=== PATIENT | female | born 1980 | race Caucasian/White ===

== ENCOUNTER → 2022-05-19 11:13 | Outpatient (CLI) | payer OTHER, SELFPAY ==
--- NOTE | ~2022-05-19 | XR_ITS ---
EXAMINATION: XR chest 2V Exam Date/Time: 05/19/2022 11:15 CDT HISTORY: R06.02 - Shortness of breath, cough Comparison: None available. RESULT: Lines, tubes, and devices: None. Lungs and pleura: Clear. Cardiomediastinal silhouette: Normal. Other: No acute osseous or upper abdominal finding. IMPRESSION: No acute cardiopulmonary process. Reviewed, dictated and finalized at location K.
== END ==
PROVIDERS: PCP Physician Assistant; Visit Provider Physician Assistant
DX: R06.02 Shortness of breath (principal)
CPT/HCPCS: 71046

== ENCOUNTER → 2023-01-27 15:24 | Outpatient (CLI) | payer OTHER, SELFPAY ==
--- NOTE | ~2023-01-27 | MM_ITS ---
EXAMINATION: MM screening selin BI w sherrell HISTORY: Screening mammogram TECHNIQUE: Craniocaudal and mediolateral oblique 3-D tomosynthesis images were obtained and synthetic 2-D images were generated. CAD analysis was submitted and interpreted. COMPARISON: None, baseline BREAST PARENCHYMAL COMPOSITION: There are scattered areas of fibroglandular density. FINDINGS: No suspicious mass, calcification, or architectural distortion are identified in either helene ast to suggest malignancy. IMPRESSION: 1. No mammographic evidence of malignancy. 2. Recommend routine screening mammography in one year. BI-RADS Category 1: Negative Reviewed, dictated and finalized at location A.
== END ==
PROVIDERS: PCP Physician Assistant; Visit Provider Physician Assistant
DX: Z12.31 Encounter for screening mammogram for malignant neoplasm of breast (principal)
CPT/HCPCS: 77063; 77067

== ENCOUNTER 2023-12-21 15:35 | Outpatient (CLI) | payer BC, SELFPAY ==
[2023-12-21 19:11] LABS: Appearance Urine Clear (Clear); Bilirubin Urine Negative (Negative); Blood Urine Negative (Negative); Color Urine Yellow (Yellow); Glucose Urine UA Negative (Negative); Ketones Urine Negative (Negative); Leukocyte Esterase Ur Negative LEU/UL (Negative); Nitrate Urine Negative (Negative); Protein Urine Negative (Negative); Specific Grav Ur 1.011 (1.001-1.035); Urobilinogen Urine 0.2 mg/dL (<2.0); pH Urine 5.5 (5.0-9.0)
[2023-12-21 19:28] LABS: Add Urine Microscopic? NO
== END 2023-12-21 15:36 | disposition home or self-care (01) ==
LOC: ANHGOSHLAB 15:36
PROVIDERS: PCP Emergency Medicine; Visit Provider Emergency Medicine
DX: R30.0 Dysuria (principal)
CPT/HCPCS: 81003

== ENCOUNTER 2025-01-26 12:28 | Outpatient (CLI) | payer BC, SELFPAY ==
--- NOTE | ~2025-01-26 | MM_ITS ---
EXAMINATION: MM screening selin BI w sherrell HISTORY: Screening TECHNIQUE: Craniocaudal and mediolateral oblique 3-D tomosynthesis images were obtained and synthetic 2-D images were generated. CAD analysis was submitted and interpreted. COMPARISON: 01/27/2023 BREAST PARENCHYMAL COMPOSITION: Not dense: There are scattered areas of fibroglandular density. FINDINGS: There is no evidence of suspicious mass, calcification, or architectural distortion to sugg est malignancy in either breast. There has been no suspicious interval change. IMPRESSION: 1. No mammographic evidence of malignancy. 2. Recommend routine screening mammography in one year. BI-RADS Category 1: Negative Reviewed, dictated and finalized at location B.
== END 2025-01-26 12:29 | disposition home or self-care (01) ==
LOC: MICIMG 01-27 12:29
PROVIDERS: PCP Nurse Practitioner Family; Visit Provider Nurse Practitioner Family
DX: Z12.31 Encounter for screening mammogram for malignant neoplasm of breast (principal)
CPT/HCPCS: 77063; 77067

== ENCOUNTER 2025-09-04 00:44 | Day surgery (SDC) | payer BC, SELFPAY ==
[2025-07-05 09:01] VITALS: BMI 25.1
--- OUTSIDE RECORDS SUMMARY | 2025-09-04 00:47 | XMS_ITS | Clinical Summary ---
Author Organization [address] Address [address] [place] [id number] Care Team Providers Care V Block Saw Operator Name Role Phone Javier Burleson MD Primary Care Provider [phone] Allergies No known active allergies Medications buPROPion XL (WELLBUTRIN XL) 150 mg 24 hr tablet Take 1 tablet (150 mg total) by mouth every morning 2 Active buPROPion XL (WELLBUTRIN XL) 300 mg 24 hr tablet Take 1 tablet (300 mg total) by mouth daily 2 Active sertraline (ZOLOFT) 100 mg tablet Take 100 mg by mouth daily 2 Active traZODone (DESYREL) 100 mg tablet 2 Active ALPRAZolam (XANAX) 0.5 mg tablet Take 1 tablet (0.5 mg total) by mouth daily as needed 2 Active benzonatate (TESSALON) 200 mg capsuleIndication s:Lower respiratory infection (e.g., bronchitis, pneumonia, pneumonitis, pulmonitis) Take 1 capsule (200 mg total) by mouth 3 (three) times a day as needed for cough 30 capsule 2 Active Additional Information Patient not taking.Reported on 07/22/2022 azithromycin (ZITHROMAX) 250 mg tabletIndications :Lower respiratory infection (e.g., bronchitis, pneumonia, pneumonitis, pulmonitis) Take 2 tablets the first day, then 1 tablet daily for 4 days. 6 tablet 2 Active Additional Information Patient not taking.Reported on 07/22/2022 methylPREDNISolon e (Medrol, Clark,) 4 mg DosepackIndicatio ns:Lower respiratory infection (e.g., bronchitis, pneumonia, pneumonitis, pulmonitis) follow package directions 1 packet 2 Active Additional Information Patient not taking.Reported on 07/22/2022 diazePAM (VALIUM) 5 mg tabletIndications :ASNHL (asymmetrical sensorineural hearing loss) Take 1 tablet (5 mg total) by mouth every 30 (thirty) minutes as needed for anxiety for up to 2 doses 2 tablet 2 Active Additional Information Patient not taking.Reported on 09/16/2022 clindamycin (CLINDAGEL) 1 % gel 3 Active sulfamethoxazole- trimethoprim (BACTRIM DS) 800-160 mg per tablet Take 1 tablet by mouth 2 (two) times a day 14 tablet 3 Active Additional Information Patient not taking.Reported on 10/01/2022 vilazodone (VIIBRYD) 40 mg tablet Take 1 tablet (40 mg total) by mouth daily 4 Active Wegovy 0.25 mg/0.5 mL auto-injector INJECT 0.25 MG UNDER THE SKIN ONCE WEEKLY 4 Active topiramate (TOPAMAX) 50 mg tabletIndications :Chronic migraine without aura without status migrainosus, not intractable Take half tablet (25 mg) po twice a day for one week, then one tablet po twice a day 60 tablet 3 4 Active Active Problems Problem Noted Date Diagnosed Date 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 Chronic migraine without aur a without status migrainosus, not intractable 03/30/2024 Numbness and tingling of upper extremity 024 ASNHL (asymmetrical sensorineural hearing loss) 07/22/2022 Assessment & Plan (07/22/2022 9:12 AM INSTRUCTIONAL COORDINATOR): MRI Internal auditory canals, when negative will medically clear for hearing aids Valium if needed for imaging Acne 01/27/2014 Overview (12/16/2016): Acne Anxiety state 01/27/2014 Overview (12/18/2016): ANXIETY STATE NOS Immunizations Immunization Administration Dates Next Due Influenza, Split 06/02/2011 Surgical History Surgery Date Site/Laterality Comments OTHER SURGICAL HISTORY 1985 eye surgeries Family History Medical History Relation Name Comments Hepatitis Father Hepatitis C; Hyperlipidemia Father Hyperlipidemi a; Hypertension Father Hypertension; Other Father liver problems; Other Mother 2 Alive and well; Other Sister 2 Alive and well; Relation Name Status Comments Father Mother 1 Alive Mother 2 Sister 1 Alive Sister 2 Social History Tobacco Use Types Packs/Day Years Used Date Smoking Tobacco: Never Alcohol Use Standard Drinks/Week Comments Yes 0 (1 standard drink = 0.6 oz pur e alcohol) AUDIT-C Answer Date Recorded Frequency of Alcohol Consumption Not on file 09/16/2022 Q2: How many drinks containi ng alcohol do you have on a typical day when you are drinking? Patient does not drink Frequency of Binge Drinking Not on file 12/2022 Comments Unknown Sex and Gender Information Value Date Recorded Sex Assigned at Not on file Legal Sex Female 10:15 PM INSTRUCTIONAL COORDINATOR Gender Identity Not on file Sexual Orientation Not on file Last Filed Vital Signs Vital Sign Reading Time Taken Comments Blood Pressure 112/79 03/30/2024 9:39 AM CDT Pulse 79 03/30/2024 9:39 AM CDT Temperature 36.3 C (97.3 F) 09/16/2022 10:35 AM INSTRUCTIONAL COORDINATOR Respiratory Rate 12 09/16/2022 10:35 AM INSTRUCTIONAL COORDINATOR Oxygen Saturation 97% 03/30/2024 9:39 AM CDT Inhaled Oxygen Concentration - - Weight 88.5 kg (195 lb) 05/03/2024 10:29 AM CDT Height 167.6 cm (5' 5.98) 03/30/2024 9:39 AM CD T Body Mass Index 31.49 03/30/2024 9:39 AM CDT Plan of Treatment Health Maintenance Due Date Last Done Comments Breast Cancer Screening-Mammogram 1980 Cervical Cancer Screening 1980 Colon Cancer Screening-Colonoscopy 1980 Depression Screening 1980 Hepatitis C Screening 1980 DTaP/Tdap/Td Vaccine (1 - Tdap) 1991 Varicella Vaccines (1 of 2 - 13+ 2-dose series) 1993 Hepatitis B Screening 1998 Regular Well Visit/Exam 18-64 1998 HPV Vaccines (1 - 3-dose SCD M series) 2007 Covid-19 Vaccine (2024-2 6 season) 2025 08/21/2021, 01/27/2021, 10/23/2020 Influenza Vaccine (#1) 2025 06/02/2011 Pneumococcal vaccine <65 Aged Out No longer eligible based on patient's age to complete this topic Insurance [employer] ACCESS CHOICE [employer] ACCESS CHOICE [employer] ACCESS CHOICE Member Subscriber Plan / Payer (Ef fective 2023-Present) Name:Jo Ann Marin Relation to Subscriber:Self Name:Jo Ann Marin Payer ID:[id number] (NAIC) Type:[facility] Address: [facility] [id number] [id number] Care Teams V Block Saw Operator Relationship Specialty Start Date End Date Javier Burleson MD [address] [place] [address] PCP - General Family Medicine 03/27/24
--- OUTSIDE RECORDS SUMMARY | 2025-09-04 00:47 | XMS_ITS | Data Portability ---
Author Organization [facility] [place] Address [address] [place] [address] [address] [place] [address] Care Team Providers Care Safety Companion Name Role Phone MICHAEL MELCHOR Primary Care Provider Assessment Encounter Date Assessment Date Assessment LastModified by Organization Details LastModified Time 04/15/2023 04/15/2023 Annual gynecological exam performed. Patient will come back in a year unless there are new symptoms. [email or web address] Not available 04/15/2023 15:14:52 04/17/2025 04/17/2025 Annual gynecological exam performed. Patient will come back in a year unless there are new symptoms. [email or web address] Not available 04/17/2025 09:08:24 Plan of Treatment Reminders Order Date Submit Date Provider Last Modified By Organization Details Last Modified Time Details Appointments None recorded. Lab test, urine 2024 025 [email or web address] [place], [address], [place], [address], 15:59:55 Referral None recorded. Procedures colonoscop y screening (PROC) [facility], [address], [address], [place], [address], 5 16:19:12 Surgeries None recorded. Imaging MAMMO, screening, digital, bilateral 2024 025 [facility], [address], [address], [place], [address], 5 10:07:24 Medication Orders Mirena 21 mcg/24 hr (up to 8 years) 52 mg intrauteri ne device 2024 025 [email or web address] [id number], [address] , [place], [place], [id number], 5 15:59:55 Patient TargetsNo targets recorded. Patient InstructionsNo instructions recorded. Reason for Referral None Reported. Results Created Date Observation Date Name Description Value Unit Range Abnormal Flag Note LastModifiedBy Organization Detail LastModifiedTime 04/15/2004/15/2023 IMAGE GUIDE D PAP AND HPV REGAR DLESS image guided Pap, HPV regardless of Pap result SEE RESULT S BELOW CASE REPOR T: Cytol ogy Gynec ologi ivan Repor t Case: [id number] Autho eli g Provi billy: Maren Lopez, CLARA Colle cted: 04/15 1533 Order ing Locat ion: [place] [facility] Recei karie: 04/16 0150 First Screyousuf n: Stefanie Callaway , SANDI Rescr een: Nallely Mcfarland , CT Speci men: Clarissayousuf coxg Pap - Image d, Cervi x STATE MENT OF ADEQU ACY: Satis facto ry for evalu ation Trans forma tion zone compo nent absen t The absen ce of an endoc ervic al compo nent was confi rmed by an addit ionjanie major ner. FINAL DIAGN OSIS: Negat keeley for Intra epith elial Lesio n or Pepito hughes (NIL) . Elect roshan agosto kelli d by Nallely Mcfarland , SANDI on 023 at 9:08 AM ----- ----- ----- ----- ----- ----- ----- ----- ----- ----- ----- ----- ----- ----- ----- ----- ----- ---- HPV RESUL TS: HPV mRNA E6/E7 : No HPV mRNA Detec richardson NOTE: This high risk HPV mRNA assay detec ts fourt een high- risk HPV types (16, 18, 31, 33, 35, 39, 45, 51, 52, 56, 58, 59, 66, 68) witho ut diffe renti ation . COMME NT: This speci men was revie wed by a Cytot echno logis t and/o r Patho logis t (as indic ated in this repor t) after evalu ation using the Thinp rep Imagi ng Syste m. CLINI IVAN INFOR MATIO N: Menst rual Statu s: LMP (if appli cable ): Clini ivan Histo ry/Pr eviou s Pap: Type of Neopl henna (if appli cable ): Signi fican t Clini ivan Findi ngs: Other Histo ry: Hormo nancy (if appli cable ): PAP EDUCA BLANCA L NOTE: The Pap Test is a scree maryann test with an inher ent false negat keeley rate. Liqui d-bas ed sampl ing may decre ase, but will not elimi drew, false negat keeley resul ts. A negat keeley resul t does not precl ude the prese nce and/o r devel opmen t of disea se, since the prese nce of abnor mal cells in the sampl e depen ds on the locat ion of the lesio n and sampl ing techn ique. Jess nued regul ar scree maryann is the best metho d of cance r preve ntion . If repor richardson cytol ogic findi ng do not corre late with physi ivan and/o r histo rical findi ngs, furth er inves tigat ion is recom emiliano d, as clini tee edward nted. Not Available [facility] (Lab) [address], [place], [address], 04/19/2023 10:12:22 04/24/20 25 04/24/2025 pregn tash test, urine HCG negati ve Not Available [place] [address], [place], [address], 04/24/2025 15:58:10 Result Notes None recorded. Problems Name Problem SNOMED Code Status Onset Date Resolution Date Notes Provider Name and Address Organization Details Recorded Time Education Active 2014 Family planning;R ecorded Elsewhere: No Locatio n: [facility] rce: EHR Chroni c: N Practice ID: [id number] Billa ble Time: 12:30:00 PM Not Available [facility] 0 16:04:42 Condyloma acuminatu m of the anogenita l region [id number] Active 2014 Condyloma acuminatum ;Recorded Elsewhere: No Locatio n: [facility] rce: EHR Chroni c: N Practice ID: 0001 Billa ble Time: 11:30:00 AM Not Available [facility] 0 16:04:41 Body mass index 25-29 - overweigh t [id number] Active 2015 Body mass index (BMI) 29.0-29.9, adult;Sage rded Elsewhere: No Locatio n: [facility] rce: EHR Chroni c: N Practice ID: 0001 Billa ble Time: 03:45:00 PM Not Available [facility] 0 16:04:[address] Concept Active 2015 Encntr for general adult medical exam w/o abnormal findings;R ecorded Elsewhere: No Locatio n: [facility] rce: EHR Chroni c: N Practice ID: 0001 Billa ble Time: 03:45:00 PM Not Available [facility] 0 16:04:42 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 Procedures Surgical History Date Name Laterality Status Provider Name and Address Organization Details Recorded Time 5 IUD Insertion completed FLORI ZAMORA, CLARA [address], [place], [address], [facility] 04/24/2025 15:58:07 3 Date of Last Pap Smear completed Holley Auguste [facility] 04/17/2025 08:55:52 4 procedure on eye completed Brooke Reinoso [facility] 04/01/2020 16:50:53 Imaging Results None recorded. Procedure Notes None recorded. Medical Equipment None Reported. Allergies No known drug allergies Medications Name Sig Start Date Stop Date Status Note LastModified by Organization Details LastModified Time Mirena 21 mcg/24 hr (up to 8 years) 52 mg intrauter ine device Take 1 device by intraute rine route. 2024 active Not Available Not Available Not Avai lable azithromy prosper 250 mg tablet TAKE 2 TABLETS BY MOUTH FOR 1 DAY THEN TAKE 1 TABLET BY MOUTH DAILY FOR 4 DAYS 04/15 completed Not Available Not Available Not Available fluconazo le 150 mg tablet 04/15 completed Not Available Not Available Not Available benzonata te 200 mg capsule 04/15 completed Not Available Not Available Not Available sertralin e 100 mg tablet TAKE 1 TABLET BY MOUTH DAILY 04/15 completed Not Available Not Available Not Available sulfameth oxazole 800 mg-trimet hoprim 160 mg tablet TAKE 1 TABLET BY MOUTH EVERY 12 HOURS 04/15 completed Not Available Not Available Not Available acyclovir 800 mg tablet TAKE 1 TABLET BY MOUTH THREE TIMES DAILY 04/17 completed Not Available Not Available Not Available alprazola m 0.5 mg tablet TAKE 1 TABLET BY MOUTH DAILY 04/17 completed Not Available Not Available Not Available clindamyc in 1 % topical gel APPLY THIN LAYER TOPICALL Y TO THE AFFECTED AREA TWICE DAILY 04/15 completed Not Available Not Available Not Available trazodone 100 mg tablet TAKE 1 TABLET BY MOUTH EVERY DAY AT BEDTIME active Not Available Not Available No t Available Xanax 0.25 mg tablet take 1 tablet by oral route 3 times every day 04/17 completed Prescrib ed Elsewher e: Yes Loca tion: Ede to [facility] odify By: luma z Encoun ter DateTime : 08/24/20 17 10:15:00 AM Not Available Not Available Not Available nitrofura ntoin macrocrys anup 100 mg capsule TAKE 1 CAPSULE BY MOUTH EVERY 12 HOURS 04/17 completed Not Available Not Available Not Available prednison e 50 mg tablet TAKE 1 TABLET BY MOUTH DAILY 04/17 completed Not Available Not Available Not Available Wellbutri n 75 mg tablet take 1 tablet by oral route 3 times every day 04/15 completed Prescrib ed Elsewher e: Yes Loca tion: Adi yousuf [facility] odify By: julia dawson DateTime : 03/28/20 15 12:30:00 PM Not Available Not Available Not Available Condylox 0.5 % topical gel apply by topical route 2 times every day for 3 consecut keeley days, then disconti nue for 4 consecut keeley days. Repeat for max of four times. 08/24 completed Prescrib ed Elsewher e: No Locat ion: Ede to [facility] odify By: luma z Encoun ter DateTime : 03/28/20 15 12:30:00 PM Not Available Not Available Not Available methylpre dnisolone 4 mg tablets in a dose pack FOLLOW PACKAGE DIRECTIO NS 04/15 completed Not Available Not Available Not Available albuterol sulfate HFA 90 mcg/actua tion aerosol inhaler INHALE 1 PUFF EVERY 4 HOURS 04/17 completed Not Available Not Available Not Available Vitamin D2 1,250 mcg (50,000 unit) capsule take 1 capsule by oral route every week 2017 active Prescrib ed Elsewher e: No Locat [facility]: [facility] By: lenin melendez DateTime : 09/14/19 18 08:12:38 AM Not Available Not Available Not Available propranol ol 20 mg tablet TAKE 2-3 TABLET BY MOUTH 1 HOUR PRIOR TO EVENT NEEDED ANXIETY 04/17 completed Not Available Not Available Not Available Zoloft 25 mg tablet take 1 tablet by oral route every day 04/15 completed [facility] Yes Loca tion: [facility] odify By: DFine z Encoun ter DateTime : 08/24/20 17 10:15:00 AM Not Available Not Available Not Available diazepam 5 mg tablet TAKE 1 TABLET BY MOUTH EVERY 30 MINUTES NEEDED FOR ANXIETY FOR UP TO 2 DOSES 04/15 completed Not Available Not Available Not Available Microgest in (21) 1.5 mg-30 mcg tablet take 1 tablet by oral route every day 08/24 completed [facility]crib [facility]: Yes Loca tion: [facility] odify By: DFine z Encoun ter DateTime : 03/28/20 15 12:30:00 PM Not Available Not Available Not Available aripipraz ole 5 mg tablet TAKE 1 TABLET BY MOUTH EVERY DAY AT BEDTIME 04/17 completed Not Available Not Available Not Available bupropion HCl XL 300 mg 24 hr tablet, extended release TAKE 1 TABLET BY MOUTH EVERY MORNING active Not Available Not Available No t Available bupropion HCl XL 150 mg 24 hr tablet, extended release TAKE 1 TABLET BY MOUTH EVERY MORNING active Not Available Not Available No t Available topiramat e 50 mg tablet 04/17 completed Not Available Not Available Not Available nitrofura ntoin monohydra te/macroc rystals 100 mg capsule TAKE 1 CAPSULE BY MOUTH EVERY 12 HOURS FOR 10 DAYS 04/17 completed Not Available Not Available Not Available Zoloft 04/15 completed Not Available Not Available Not Available Xanax 04/15 completed Not Available Not Available Not Available Wellbutri n XL 04/15 completed Not Available Not Available Not Available vilazodon e 40 mg tablet TAKE 1 TABLET BY MOUTH DAILY active Not Available Not Available No t Available vilazodon e 20 mg tablet 04/15 completed Not Available Not Available Not Available Vitamin D2 04/15 completed Not Available Not Available Not Available Blisovi Fe 10/02 (28) 1 mg-20 mcg (21)/75 mg (7) tablet TAKE 1 TABLET BY MOUTH DAILY 04/15 completed Not Available Not Available Not Available Wegovy 1.7 mg/0.75 mL subcutane ous pen injector INJECT 1.7 MG (0.75 ML) SUBCUTAN EOUSLY WEEKLY active Not Available Not Available No t Available Wegovy 1 mg/0.5 mL subcutane ous pen injector ADMINIST ER 1 MG UNDER THE SKIN EVERY 7 DAYS 04/17 completed Not Available Not Available Not Available Wegovy 0.25 mg/0.5 mL subcutane ous pen injector INJECT 0.25 MG UNDER THE SKIN ONCE WEEKLY 04/17 completed Not Available Not Available Not Available Wegovy 0.5 mg/0.5 mL subcutane ous pen injector ADMINIST ER 0.5 MG UNDER THE SKIN WEEKLY 04/17 completed Not Available Not Available Not Available Vitals Date Recorded Body height Body mass index (BMI) Body weight Systolic And Diastolic Provider Name and Address Organization Details Last Updated DateTime 04/15/2023 167.64 cm 36 kg/m2 875519.1 g 104/72 mm[Hg] Lelo Munoz [facility] 04/15/2023 15:15:57 Date Recorded Body height Body mass index (BMI) Body weight Systolic And Diastolic Provider Name and Address Organization Details Last Updated DateTime 04/17/2025 167.64 cm 26.5 kg/m2 47674.15 g 110/69 mm[Hg] [facility] 04/17/2025 09:08:37 Date Recorded Body height Body mass index (BMI) Body weight Systolic And Diastolic Provider Name and Address Organization Details Last Updated DateTime 04/24/2025 167.64 cm 26.6 kg/m2 54346.02 g 128/84 mm[Hg] [facility] 04/24/2025 15:19:19 Social History Question Answer Notes LastModified by Organizat ion Details LastModified Time Tobacco Smoking Status Never Smoker Lelo Munoz [facility] 04/15/2023 15:16:11 Do You Have An Advance Directive? No [email or web address] Information n ot available 04/17/2025 Are You Blind Or Do You Have Difficulty Seeing? No Information n ot available 04/15/2023 What Is Your Level Of Caffeine Consumption? Moderate Information not available 04/15/2023 How Much Tobacco Do You Chew? None Information not available 04/15/2023 In The 14 Days Before Symptom Onset, Have You Had Close Contact With A Laboratory-confirm ed COVID-19 While That Case Was Ill? No Information n ot available 04/15/2023 In The 14 Days Before Symptom Onset, Have You Had Close Contact With A Person Who Is Under Investigation For COVID-19 While That Person Was Ill? No Information not available 04/15/2023 Have You Been To An Area Known To Be High Risk For COVID-19? No Information not available 04/15/2023 Are You Deaf Or Do You Have Serious Difficulty Hearing? Yes Information not available 04/15/2023 What Type Of Diet Are You Following? REGULAR Information n ot available 04/15/2023 What Is The Highest Grade Or Level Of School You Have Completed Or The Highest Degree You Have Received? [id number] Information not available 04/15/2023 Are There Any Guns Present In Your Home? No Information not available 04/15/2023 Do You Use Protection During Sex? Always [email or web address] Information not available 04/17/2025 Do You Use Your Seat Belt Or Car Seat Routinely? Yes Information not available 04/15/2023 Do You Have Smoke And Carbon Monoxide Detectors In Your Home? Yes Information not available 04/15/2023 How Much Tobacco Do You Smoke? No Information not available 04/15/2023 Do You Use Sunscreen Routinely? Yes Information not available 04/15/2023 Have You Used IV Drugs? No Information not available 04/15/2023 Do You Have Difficulty Walking Or Climbing Stairs? No Information not available 04/15/2023 Sex: Unknown Functional Status Question Answer Note LastModified by Organizat ion Details LastModified Time Do you use any illicit or recreational drugs? No Information not available 04/15/2023 What is your level of alcohol consumption? None Information not available 04/15/2023 Are you able to walk independently without assistance or assistive devices? YESWOREST Information not available 04/15/2023 Are you able to care for yourself independently? 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 No Information not available 04/15/2023 What is your exercise level? Moderate [email or web address] Information not available 04/17/2025 Mental Status Question Answer Note LastModified by Organization D etails LastModified Time Do you feel stressed (tense, restless, nervous, or anxious, or unable to sleep at night)? [id number] Information not available 04/15/2023 Family History Relationship Description Onset Age of this Age Resolved Age Notes LastModified by Organization Details LastModified Time Maternal Grandmother Carcinoma of uterine cervix, invasive [email or web address] Not available 2019 16:50:38 Notes:Maternal grandmother: Cancer, cervical Medical History Condition Response Allergies (Food, seasonal, environmental ) N Other N Drug/Latex Allergies/Reactions N Blood Transfusion N Breast Cancer N Dermatologic Disorders N Lung Disease N Defects or Inherited Disease N Breast Problem N Gestational Diabetes N Hematologic disorders N Anesthesia Complications N History of STI N Deep Vein Thrombosis N Polycystic ovary syndrome N Anxiety Disorder N Autoimmune disease N Arthritis N Polyps N Infertility N Acid Reflux (GERD) N History of abnormal pap N Cancer N Varicosities N Stroke N Neurologic/Epilepsy N Endometriosis N High Cholesterol N Fibromyalgia N Headaches N Kidney Disease N Heart Problems N Thyroid Problems N Kidney or Bladder Problems N GI Problems N Eating Disorder N Anemia N Art (IVF or FET) N Psychiatric Illness N Ovarian Cancer N Diabetes N Pulmonary (TB, Asthma) N Hepatitis/Liver Disease N No Past Medical History N Eczema N Urinary Tract Infection N Abuse/Domestic Violence N Asthma N Trauma/Violence N Depression/ depression N Heart Disease N Pre-Eclampsia N Hypertension N Osteoporosis N Thrombophilias N Gynecological History Statement/Question Response Flow Moderate Date of LMP 04/19/2025 N Was last menstrual period normal Y STIs/STDs N HPV Vaccine N Current Control Method IUD Are cycles usually normal Y Sexually Active? N Menses Monthly Y Age of first menstrual cycle 12 Date of Last Pap Smear 04/15/2023 Sexual Problems? N Desired Control Method IUD LMP Definite N Obstetrics History GPAL:G 0 P 0 0 0 0 Past Encounters Encounter ID Performer Location Encounter Start Date Encounter Closed Date Diagnosis/Indication Diagnosis SNOMED-CT Code Diagnosis ICD10 Code Diagnosis IMO Codes Diagnosis Note [id number] EVON Talley [place] [address] [address] 04/15/2023 14:59:05 04/15/2023 16:02:34 Gynecologic examination 57892367 Z01.419 Suggested Calcium with Vitamin D 1200-1500m g daily. Patient advised to get an annual flu shot in the fall and she could obtain at [facility] or [facility] care clinic. Also to obtain TDap vaccinatio n if you have not had one in the last 10 years. Recommend yearly mammograms . Encouraged monthly self breast exams. Encourage safe sexual practices, to use condoms and limit partners if not already in a monogamous relationsh ip. Engage in daily exercise of low impact aerobic exercise 45-60 minutes 4-5 times weekly. Avoid tobacco and illicit drugs as well as using moderation with alcohol intake less than 1-2 8 oz beverages daily. This lifestyle behavior pattern will lead to less health conditions and longer life span. If BMI greater than 25 weight watchers or dietary consult advised. All questions have been answered. Patient appears to understand informatio n, but if you have any questions please call or respond to this email. 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 Risks of infection would be increased within the first 21 days of placement with concommita nt cervicitis . She understand s that the device will need to be removed in this instance due to increased risk of Pelvic inflammato ry disease. Patient is aware she is at higher risk for STD and if contracted she could lose her fertility. Pt is aware that if occurs that she should contact office immediatel y to rule out ectopic which could be life threatenin g. IUD will also need to be removed and this could cause miscarriag e. Patient also informed that in the event her strings are absent or embedded at the time of removal she may need to have the IUD surgically removed.RT C during next period for insertion [id number] FLORI ZAMORA, CLARA [place] [address] [address] 04/17/2025 09:00:43 04/17/2025 09:54:27 Well woman health examination [id number] Z01.419 [id number] Annual gynecologi ivan exam performed. Patient will come back in a year unless there are new symptoms. Suggest Calcium with Vitamin D if not eating in diet. Patient advised to get annual flu shot. Recommend yearly physicals and perform monthly breast exams. Genetic testing is available for patients with family history of cancer. Engage in safe sexual practices, use condoms. Encouraged to have daily exercise. Avoid tobacco and illicit drugs, moderation of alcohol. If BMI greater than 25 dietary consult advised. If you have any questions please call or email. mammogram- order given, pt to schedule colon cancer screening - due at age 45; referral to [facility] for screening colonoscop y DEXA scan- n/a Pap smear- UTD (2022 - WN), will repeat in 2025 per ASCCP guidelines laboratory evaluation - PCP STI testing - declined Screening mammography 24 384606 Z12.31 [id number] Menorrhagia 206156105 N9 2.0 [id number] Today we discussed multiple options for menorrhagi a including: hormonal IUD, Patch, Ring, Pills, Nexplanon, Lysteda; Endometria l ablation (requires MD consult). We discussed if any are contraindi cated with her current health Hx. Patient interested in Mirena IUD.Discus sed the risks, benefits, and alternativ es to Mirena IUD. Discussed insertion and removal process. Discussed bleeding profile. Questions answered. Will schedule insertion with menses. Screening for malignant neoplasm of colon 014910031 Z12.11 [id number] FLORI ZAMORA, CLARA [place] [address] [address] 04/24/2025 15:10:24 04/24/2025 16:01:01 Insertion of hormone releasing intrauterine contraceptive device [id number] Z30.430 [id number] She has been counseled on all of the r/b/a of placement of an intrauteri ne device that include but are not limited to uterine perforatio n, injury to cervix, vagina, bladder, and bowel.Risk s of bleeding due to injury or increased irregular bleeding due to progestin effect of the device. Risks of infection would be increased within the first 21 days of placement with concomitan t cervicitis . She understand s that the device will need to be removed in this instance due to increased risk of Pelvic inflammato ry disease. Patient is aware she is at higher risk for STD and if contracted she could lose her fertility. Pt is aware that if occurs that she should contact office immediatel y to rule out ectopic which could be life threatenin g. IUD will also need to be removed and this could cause miscarriag e. Patient also informed that in the event her strings are absent or embedded at the time of removal she may need to have the IUD surgically removed. She was informed of the above and properly consented. Mirena IUD placed w/o complicati on. Patient should return to office in 4-6 weeks to check for string placement. Patient to expect irregular bleeding but should be seen in the ED if bleeding increases to soaking a pad an hour for at least 2 hours. She verbalized understand ing. Health Concerns Section Related Observation LastModified by Organization Detai ls LastModified Time None Recorded Concern Status LastModified by Organization Details LastModified Time None Recorded Advance Directives Directive N: Payers Insurance Date Sequence Insurance Name Policy Number Policy Coley Covered Member ID Coley Member ID Guarantor Name 04/22/2025 1 KEIKO BALBUENA (PPO) [id number] Jo Ann Marin [id number] Jo Ann Marin 03/30/2023 1 *SELF PAY* Valdemar Marin 08/04/2024 1 [facility] [id number] Jo Ann Marin [id number] Jo Ann Marin Notes Date Note Type Note Provider Name and Address Organization Details Recorded Time 3 text/html Annual GYNReported by PatientGenitourinary symptomsFor menstrual cycle, patient reportssevere dysmenorrhea. For urinary symptoms, patient reportsno hematuriaandno incontinence. For vulva, patient reportsno genital lesion. For vagina, patient reportsnormal vaginal discharge.Breast symptomsFor breast, patient reportsno breast pain,no breast lump, andno nipple discharge.ContraceptionFo r current contraception, (not currently sa).Endocrine symptomsFor sexual complaints, patient reportsno sexual complaints,no pain during intercourse, andnormal libido. For menopausal symptoms, patient reportsno menopausal symptomsandnormal vaginal lubrication.Psychological symptomsFor psychological symptoms, patient reportsno depression,no anxiety, andno pmdd.Preventative measuresFor preventive measures, patient reportsencourage self breast examination,encourage regular exercise,encourage no tobacco use,encourage regular mammograms starting age 40, andmammogram performed within the past year. EVON Talley [address], [place], [address], [facility] 04/15/2023 15:47:58 5 text/html Annual GYNReported by PatientHistoryFor history, patient reportsno gynecologic complaints.Genitourinary symptomsFor menstrual cycle, patient reportsmenorrhagia. For urinary symptoms, patient reportsno hematuriaandno incontinence. For vulva, patient reportsno genital lesion. For vagina, patient reportsnormal vaginal discharge.Breast symptomsFor breast, patient reportsno breast pain,no breast lump, andno nipple discharge.Endocrine symptomsFor sexual complaints, patient reportsno sexual complaints,no pain during intercourse, andnormal libido. For menopausal symptoms, patient reportsno menopausal symptomsandnormal vaginal lubrication.Psychological symptomsFor psychological symptoms, patient reportsno depression,no anxiety, andno pmdd.Preventative measuresFor preventive measures, patient reportsencourage self breast examination,encourage regular exercise,encourage no tobacco use, andencourage regular mammograms starting age 40. Patient presents for annual well woman exam. Patient interested in Mirena IUD to help with heavy periods that last 6-7 days. Patient states that she has not been sexually active in over 2 years. Holley laureano [facility] 04/17/2025 16:01:29 5 text/html Patient presents for Mirena IUD insertion.Informed consent obtained.UPT negative. Holley laureano [facility] 04/24/2025 16:01:45 OBGyn Episode No OBEpisode recorded.
[2025-09-04 06:27] VITALS: BP 99/75; PULSE 93; RESP 17; TEMP 36.6; O2SAT 99; BMI 24.1
[2025-09-04 06:31] LABS: BEDSIDEPREGUCG Negative (Negative)
[2025-09-04] MEDS: LACTATED RINGERS 1,000 ML 150 ML IV CONT (06:34)
--- NOTE | 2025-09-04 06:47 | WPDANESEPPF ---
Anes - Initial Pre Proc Eval Procedure: Operation Date: 09/04/25 07:30 Proposed Procedures p Screening Colonoscopy - Tony Welch DO Date/Time: 09/04/25 06:47 Surgeon: Tony Welch DO Pre Op Diagnosis: Neoplasm screening Patient Data Age: 45 Gender: F Height: 1.7 m Weight: 70 kg Last Vital Signs Temp 36.6 C 09/04/25 06:27 Pulse 93 09/04/25 06:27 Resp 17 09/04/25 06:27 BP 99/75 L 09/04/25 06:27 Pulse Ox 99 09/04/25 06:27 O2 Del Method Room Air 09/04/25 06:27 Allergies Allergy/AdvReac Type Severity Reaction Status Date / Time No Known Allergies Allergy Verified 09/04/25 06:25 Home Medications ?Medication ?Instructions ?Recorded ?Confirmed ?Type propranolol 20 mg tablet See Rx Instructions .Route 08/29/24 09/04/25 Rx .COMPLEX PRN anxiety #60 tabs bupropion HCl 150 mg 24 hr tablet, 150 mg PO QAM #90 tabs 03/12/25 09/04/25 Rx extended release bupropion HCl 300 mg 24 hr tablet, 300 mg PO QAM #90 tabs 03/12/25 09/04/25 Rx extended release alprazolam 0.5 mg tablet 0.5 mg PO DAILY #90 tabs 03/19/25 09/04/25 Rx vilazodone 40 mg tablet (Viibryd) 40 mg PO DAILY #90 tabs 05/15/25 09/04/25 Rx trazodone 100 mg tablet 100 mg PO QHS #90 tabs 07/20/25 08/20/25 Rx semaglutide (weight loss) 1.7 1.7 mg (0.75 mL) subcut WEEKLY #3 08/07/25 09/04/25 Rx mg/0.75 mL subcutaneous pen mL injector (Wegovy) Laboratory Tests 09/04/25 06:27 POC Urine HCG, Qual Negative (Negative) Patient hx anesthesia problems: none Family hx anesthesia problems: none Results Review: All pre-operative results and documents have been reviewed as part of the pre-operative evaluation. [facility] Family History Family History Father Depression Family history of alcoholism Grandparent Hypertension Family history of malignant neoplasm Family history of malignant neoplasm of breast, Onset Age: 50 Social History Social History Smoking status: Never smoker Alcohol intake: former Alcohol use details: quit drinking after losing her job October 2020 Substance use: never Substance use type: does not use Lack of Transportation: No Lack of Food: Never True Current Housing: I Have Housing Concerned About Future Housing: No Difficulty Paying Gas/Electric Bills: No Difficulty Paying for Meds: No Currently Unemployed: No Education: Master's Degree or Higher Difficulty w/ Childcare or Family Care: No Living arrangements: alone Spiritual care concerns: No Anes - Eval Final PreProcedure Day of Procedure 09/04/25 06:47 Patient weight: normal Heart: regular rate and rhythm Lungs: clear to auscultation Airway: Mallampati scale class II Neurological: alert and oriented Last oral intake: >/= 8 hours ASA classification: II Emergent: no Anesthetic plan: proceed Anesthesia type and monitoring: general GIVS and standard monitoring Results Review: All pre-operative results and documents have been reviewed as part of the pre-operative evaluation. Informed Consent: The patient's anesthetic plan and its attendant risks and benefits were discussed with the patient/family/POA. Questions were solicited and answers provided to the satisfaction of the patient/family/POA.
--- NOTE | 2025-09-04 07:30 | P.HP_ITS ---
H&P: HPI History of Present Illness Date/Time: 09/04/25 07:30 Chief Complaint: Screening for colorectal cancer Narrative: This is a 45-year-old woman who presents for her 1st colonoscopy. She denies any hematochezia or melena. She denies any family history of colon cancer. Review of Systems Review of Systems: All systems reviewed & are unremarkable except as noted in HPI and below Constitutional: Constitutional: Denies chills, Denies fever(s), Denies headache(s) and Denies weight loss Eyes: Eyes: Denies change in vision ENT: Denies dizziness, Denies headache(s), Denies neck mass and Denies throat swelling Cardiovascular: Cardiovascular: Denies chest pain, Denies lightheadedness and Denies dyspnea Respiratory: Respiratory: Denies cough, Denies dyspnea and Denies wheezing Gastrointestinal: Gastrointestinal: Denies abdominal pain, Denies change in bowel habits, Denies nausea and Denies vomiting Genitourinary: Genitourinary: Denies hematuria and Denies dysuria Musculoskeletal: Musculoskeletal: Reports as per HPI Integumentary/Breasts: Skin/Breast: Reports as per HPI Neurologic: Denies dizziness and Denies headache(s) Allergic/Immunologic: Allergic/Immunologic: Denies throat swelling and Denies wheezing PMFSH Family History Family History Father Depression Family history of alcoholism Grandparent Hypertension Family history of malignant neoplasm Family history of malignant neoplasm of breast, Onset Age: 50 Social History Social History Smoking status: Never smoker Alcohol intake: former Alcohol use details: quit drinking after losing her job October 2020 Substance use: never Substance use type: does not use Lack of Transportation: No Lack of Food: Never True Current Housing: I Have Housing Concerned About Future Housing: No Difficulty Paying Gas/Electric Bills: No Difficulty Paying for Meds: No Currently Unemployed: No Education: Master's Degree or Higher Difficulty w/ Childcare or Family Care: No Living arrangements: alone Spiritual care concerns: No Meds Home Medications and Allergies Home Medications ?Medication ?Instructions ?Recorded ?Confirmed ?Type propranolol 20 mg tablet See Rx Instructions .Route 1 10/30/23 09/04/25 Rx .COMPLEX PRN anxiety #60 tabs bupropion HCl 150 mg 24 hr tablet, 150 mg PO QAM #90 t abs 03/12/25 09/04/25 Rx extended release bupropion HCl 300 mg 24 hr tablet, 300 mg PO QAM #90 t abs 03/12/25 09/04/25 Rx extended release alprazolam 0.5 mg tablet 0.5 mg PO DAILY #90 tabs 04/0609/04/25 Rx vilazodone 40 mg tablet (Viibryd) 40 mg PO DAILY #90 t abs 05/15/25 09/04/25 Rx trazodone 100 mg tablet 100 mg PO QHS #90 tabs 07/2008/20/25 Rx semaglutide (weight loss) 1.7 1.7 mg (0.75 mL) subcut WEEKLY #3 08/07/25 09/04/25 Rx mg/0.75 mL subcutaneous pen mL injector ([place]) Allergies Allergy/AdvReac Type Severity Reaction Status Date / Time No Known Allergies Allergy Verified 09/04/25 06:25 Vital Signs Vital Signs - 24 hr 09/04/25 06:27 Temperature 97.9 F Pulse Rate 93 Respiratory Rate 17 Blood Pressure 99/75 L Pulse Oximetry 99 Oxygen Delivery Room Air Exam Const: General: no acute distress and alert Orientation/consciousness: patient oriented x3 HENMT: Head: normocephalic and atraumatic Ears: hearing grossly normal bilaterally Face/Nose/Sinus: Normal nares present Mouth: Yes Normal oral and palatal mucosa present Eyes: Periorbital: periorbital findings normal Sclera: sclerae normal EOM: EOMs intact bilaterally Neck: Neck: normal visual inspection, no lymphadenopathy and trachea midline Chest: Chest palpation & inspection: normal inspection of the chest Resp: Effort & Inspection: normal respiratory effort Auscultation: clear to auscultation bilaterally Cardio: Jugular venous distension: no JVD Rate: regular rate Rhythm: regular rhythm Heart sounds: S1 normal heart sound present and S2 normal heart sound present Peripheral pulses: Peripheral pulses 2+ throughout GI: Inspection: normal to inspection GI Palp: Yes Soft to palpation, No Tenderness to palpation present (GI), No Guarding due to palpation present (GI) and No Rebound tenderness present Percussion: Yes normal to percussion Auscultation: normal bowel sounds : General: Yes no CVA tenderness Back/Spine/Pelvis: Back: no CVA tenderness Neuro: General: patient oriented x3, no focal motor deficits and CN's II-XI intact bilaterally Cognition (Neuro): normal cognition Speech: normal speech Motor exam (neuro): 5/5 motor strength present throughout Extrem: General: capillary refill normal and no clubbing, cyanosis or edema Assessment and Plan Assessment and plan (1) Screening for colorectal cancer: Code(s): Z12.11 - Encounter for screening for malignant neoplasm of colon; Z12.12 - Encounter for screening for malignant neoplasm of rectum Status: Acute Assessment and Plan: I have recommended colonoscopy. I have discussed the procedure, risks, benefits, and alternatives. Questions were answered. Patient is agreeable to proceed.
[2025-09-04 07:56] VITALS: BP 95/51; PULSE 82; RESP 24; O2SAT 100
[2025-09-04 08:06] VITALS: BP 103/58; PULSE 80; RESP 28; O2SAT 100
[2025-09-04 08:16] VITALS: BP 100/55; PULSE 77; RESP 20; O2SAT 100
== END 2025-09-04 08:23 | disposition home or self-care (01) ==
PROVIDERS: Anesthesiology; PCP Nurse Practitioner Family; Visit Provider Surgery
PROC: 0DJD8ZZ Inspection of Lower Intestinal Tract, Via Natural or Artificial Opening Endoscopic (ICD-10-PCS; CPT 45378; principal; 2025-09-04 07:30)
DX: Z12.11 Encounter for screening for malignant neoplasm of colon (principal); K57.30 Diverticulosis of large intestine without perforation or abscess without bleeding
CPT/HCPCS: 45378; J2003; J2704; J7120